=== PATIENT | female | born 1975 | race Hispanic/Latino ===

== ENCOUNTER 2017-10-03 09:49 | Emergency (ER) | payer SELFPAY ==
--- NOTE | 2017-10-03 12:15 | RAD ---
CHEST 2 VIEWS: Date: 10/03/17 HISTORY: Cough. FINDINGS: Heart size and mediastinum are within normal limits. The lungs are clear of any infiltrative process. IMPRESSION: No active intrathoracic disease. POS: [facility]
== END 2017-10-03 12:26 | disposition home or self-care (01) ==
LOC: ERS 09:49
DX: J20.9 Acute bronchitis, unspecified (principal); E03.9 Hypothyroidism, unspecified; Z79.899 Other long term (current) drug therapy
CPT/HCPCS: 71020

== ENCOUNTER 2017-11-15 22:13 | Emergency (ER) | payer OTHER ==
[2017-11-16 00:33] LABS: Bilirubin Negative (Negative); Blood, Urine Small (Negative); Clarity CLEAR (Clear); Glucose, Urine (Dipstick) Negative (Negative); Leukocyte Negative (Negative); Nitrite Negative (Negative); Protein, Urine (Dipstick) Negative (Neg-Trace); Specific Gravity, Urine 1.028 (1.002-1.036)
[2017-11-16 00:36] LABS: Bacteria/HPF None Seen HPF (None Seen); Hyaline Casts/LPF 0-3 HYALINE CAST LPF (0-3 Hyaline); Pathc Cast-AUWi Flag 0.13 (0-2.49); Squamous Epithelial 0-3 HPF (0-3); WBC/HPF 0-3 HPF (0-3)
[2017-11-16] MEDS ORDERED: diphenhydrAMINE 50 MG/ML VIAL ONE (01:14)
[2017-11-16] MEDS ORDERED: Ketorolac Tromethamine 30 MG/ML VIAL ONE (01:14)
[2017-11-16] MEDS ORDERED: Metoclopramide HCl 10 MG/2 ML VIAL ONE (01:14)
[2017-11-16 01:50] LABS: BHCG - Serum Negative (NEGATIVE); Pregs Control Background? CLEAR/WHITE (CLR/WHITE); Pregs Control Bar Appear? YES (CONTROL BAR)
[2017-11-16 02:08] LABS: ALT (SGPT) 35 U/L (8-55); AST (SGOT) 23 U/L (5-34); Albumin 4.1 g/dL (3.5-5.0); Alkaline Phosphatase 97 U/L (40-150); Anion Gap 11 mmol/L (10-20); BUN (Urea Nitrogen) 12 mg/dL (7.0-18.7); Bilirubin, Total 0.2 mg/dL (0.2-1.2); Calc. Creatinine Clearance 0 mL/min (70-130); Calcium 9.2 mg/dL (7.8-10.44); Carbon Dioxide 25 mmol/L (22-29); Chloride 108 mmol/L (98-107); Estimated GFR-MDRD 75; Globulin 3.4 g/dL (2.4-3.5); Glucose 100 mg/dL (70-105); Potassium 3.7 mmol/L (3.5-5.1); Protein, Total 7.5 g/dL (6.0-8.3); Sodium 140 mmol/L (136-145)
[2017-11-16 02:17] LABS: Eosinophils 1 % (0-10); Hemoglobin 10.7 g/dL (12.0-16.0); Hypochromia SLIGHT = 6-15 cells (100X) (0-5/hpf); Lymphocytes 49 % (21-51); MDiff Complete? YES; Mean Corpuscular HGB CONC 30.9 g/dL (32.0-36.0); Mean Corpuscular Volume 67.8 fl (81.0-99.0); Mean Platelet Volume 8.4 fL (7.4-10.4); Microcytosis MODERATE=15-30 cells (100X) (0-5/hpf); Monocytes 8 % (0-10); Neutrophil 40 % (42-75); PLT Morphology Comment Appears Adequate; Platelet Count 164 thou/uL (130-400); RBC Distribution Width 16.3 % (11.5-14.5); Reactive Lymphocytes 2 % (0-10); Red Blood Cell (RBC) Count 5.09 mill/uL (4.20-5.40); White Blood Cell (WBC) Count 7.8 thou/uL (4.8-10.8)
--- NOTE | 2017-11-16 07:38 | CT ---
PRELIMINARY REPORT/[facility]/EMERGENCY AFTER HOURS PROCEDURE: EXAM: CT Head Without Intravenous Contrast EXAM DATE/TIME: Exam ordered 11/16/2017 1:29 AM CLINICAL HISTORY: 42 years old, female; Pain; Headache; Headache not specified; Patient HX: 42 yo f presents to ed C/O back pain. Pt reports chronic back pain on both l and r side that has recently been worse than normal . Denies recent injury or trauma. Denies numbness or tingling in feet. Pt also reports daily headache s that are worse at night as well as anxiety. States she recently ran out of her ativan prescription. TECHNIQUE: Axial computed tomography images of the head/brain without intravenous contrast. COMPARISON: No relevant prior studies available. FINDINGS: Brain: Unremarkable. No hemorrhage. No significant white matter disease. No edema. Ventricles: Unremarkable. No ventriculomegaly. Bones/joints: Unremarkable. No acute fracture. Soft tissues: Unremarkable. Sinuses: Unremarkable as visualized. No acute sinusitis. Mastoid air cells: Unremarkable as visualized. No mastoid effusion. IMPRESSION: Normal head/brain CT. Thank you for allowing us to participate in the care of your patient. Dictated and Authenticated by: Jabari Martinez MD 11/16/2017 1:55 AM Central Time ([place] & [place]) FINAL REPORT HEAD CT WITHOUT CONTRAST: DATE: 11/16/17. COMPARISON: None. HISTORY: Headache with numbness and tingling of feet. FINDINGS: I agree with the preliminary [facility] report. Imaged paranasal sinuses/mastoid air cells are well aerat ed. There is no displaced calvarial fracture. No intracranial hemorrhage, midline shift, mass effec t, or ventricular enlargement. IMPRESSION: No acute findings. POS: [facility]
== END 2017-11-16 03:46 | disposition home or self-care (01) ==
LOC: ERS 22:13
DX: R51 Headache (principal); G89.29 Other chronic pain; M54.5 Low back pain; D50.9 Iron deficiency anemia, unspecified; E03.9 Hypothyroidism, unspecified; F31.9 Bipolar disorder, unspecified
CPT/HCPCS: 70450; 80053; 81001; 84703; 85025; 96365; 96375; J1200; J1885; J2765